=== PATIENT | male | born 1995 | race Caucasian/White ===

== ENCOUNTER 2017-06-20 18:46 | Emergency (ER) | payer OTHER ==
[~2017-06-20] VITALS: Ht 182.9 cm; Wt 108.6 kg
[2017-06-20 18:51] VITALS: BP 141/89; TEMP 98.2
[2017-06-20 20:37] VITALS: PULSE 90
== END 2017-06-20 20:38 | disposition home or self-care (01) ==
LOC: COL.ER 18:46
DX: S60.031A Contusion of right middle finger without damage to nail, initial encounter (principal); S60.041A Contusion of right ring finger without damage to nail, initial encounter; S60.051A Contusion of right little finger without damage to nail, initial encounter; W23.0XXA Caught, crushed, jammed, or pinched between moving objects, initial encounter; Y92.89 Other specified places as the place of occurrence of the external cause; Y99.0 Civilian activity done for income or pay

== ENCOUNTER 2017-07-16 14:02 | Outpatient (RCR) | payer OTHER ==
[2017-08-29] MEDS ORDERED: AMOXICILLIN 8751 TAB PO (01:06)
== END 2017-09-25 | disposition home or self-care (01) ==
LOC: WSOH
DX: S62.664A Nondisplaced fracture of distal phalanx of right ring finger, initial encounter for closed fracture (principal); W23.0XXA Caught, crushed, jammed, or pinched between moving objects, initial encounter; Y99.0 Civilian activity done for income or pay

== ENCOUNTER 2017-08-28 21:01 | Emergency (ER) | payer SELFPAY ==
[~2017-08-28] VITALS: Ht 182.9 cm; Wt 95.5 kg
[2017-08-28 21:14] VITALS: BP 142/86; TEMP 98.2
[2017-08-29] MEDS ORDERED: AMOXICILLIN 8751 TAB PO (01:06)
[2017-08-29 01:14] VITALS: PULSE 85
== END 2017-08-29 01:22 | disposition home or self-care (01) ==
LOC: COL.ER 21:01
DX: S61.032A Puncture wound without foreign body of left thumb without damage to nail, initial encounter (principal); Z23 Encounter for immunization

== ENCOUNTER 2019-02-04 15:43 | Emergency (ER) | payer OTHER ==
[~2019-02-04] VITALS: Ht 182.9 cm; Wt 126.5 kg
[~2019-02-04 15:43] MED LIST: AMOXICILLIN 8751 TAB PO
[2019-02-04 16:01] VITALS: BP 172/92; TEMP 98
[2019-02-04] MEDS ORDERED: NORCO 325 MG-51 TAB PO (16:41)
[2019-02-04] MEDS ORDERED: NAPROSYN500 MG PO (16:41)
[2019-02-04] MEDS ORDERED: FLEXERIL 1010 MG/TAB PO (16:41)
[2019-02-04 17:06] LABS: MUCOUS Present /lpf; PH 5 (5-8); SQUAMOUS EPITHELIAL 0-2 /hpf; URINE APPEARANCE Clear; URINE BACTERIA None Seen /hpf; URINE BILIRUBIN Negative (NEGATIVE); URINE BLOOD Negative (NEGATIVE); URINE COLOR Yellow; URINE GLUCOSE Negative (NEGATIVE); URINE KETONE Negative (NEGATIVE); URINE LEUKOCYTE ESTERASE Negative (NEGATIVE); URINE NITRATE Negative (NEGATIVE); URINE PROTEIN(semi-quant) Negative (NEGATIVE); URINE RBC 0-2 /hpf; URINE UROBILINOGEN Negative (NEGATIVE)
[2019-02-04 17:08] LABS: COLLECTION METHOD CLEAN CATCH
[2019-02-04 17:30] VITALS: PULSE 70
== END 2019-02-04 17:33 | disposition home or self-care (01) ==
LOC: COL.ER 15:43
PROVIDERS: Emergency Medicine
DX: S23.3XXA Sprain of ligaments of thoracic spine, initial encounter (principal); M54.5 Low back pain; X50.0XXA Overexertion from strenuous movement or load, initial encounter
CPT/HCPCS: J1885